=== PATIENT | female | born 1950 | race Caucasian/White ===

== ENCOUNTER 2017-11-01 22:05 | Emergency (ER) | payer OTHER ==
[~2017-11-01] VITALS: Ht 160 cm; Wt 126.6 kg
[~2017-11-01 22:05] MED LIST: ASPIR 8181 MG PO; BACTRIM DS TAB1 EACH PO; ECOTRIN81 MG PO; FISH OIL CONC1000 MG PO; HYDRODIURIL 2525 MG PO; KEFLEX500 M1 PO; LIPITOR20 MG PO; MICARDIS80 MG PO; NORVASC 5MG TAB5 MG PO; PERCOCET 5-3251 EACH PO; SYNTHROID0.112 MG PO; VALIUM5 M1 PO; VITAMIN C500 M3 PO
[2017-11-01 22:16] VITALS: BP 106/63
[2017-11-01 22:53] LABS: ABSOLUTE BASOPHIL COUNT 0 /CUMM (0.0-0.2); ABSOLUTE EOSINOPHIL COUNT 0.1 /CUMM (0.0-0.7); ABSOLUTE GRANULOCYTE CT 5.4 /CUMM (1.4-6.5); ABSOLUTE LYMPH COUNT 2.1 /CUMM (1.2-3.4); ABSOLUTE MONOCYTE COUNT 0.7 /CUMM (0.10-0.60); BASOPHIL % 0.4 % (0.0-2.0); EOSINOPHIL % 0.6 % (0-5); GRANULOCYTE % 64.9 % (42.2-75.2); HEMATOCRIT 35.4 % (37-47); MEAN CORPUSCULAR HGB 28.5 PG (27.0-31.0); MEAN CORPUSCULAR HGB CONC 33.3 G/DL (33.0-37.0); MEAN CORPUSCULAR VOLUME 85.7 FL (81.0-99.0); MEAN PLATELET VOLUME 7.8 FL (7.4-10.4); PLATELET COUNT 224 /CUMM (130-400); RBC DISTRIBUTION WIDTH 14.6 % (11.5-14.5); RED BLOOD CELL CT 4.13 /CUMM (4.20-5.40); WHITE BLOOD CELL COUNT 8.3 /CUMM (4.8-10.8)
--- NOTE | 2017-11-02 01:09 | ED ANIMAL BITE/WOUND CHECK ---
History of Present Illness General Chief Complaint: Lower Extremity Problems Stated Complaint: L LEG CELLULITIS Source: patient, family, old records Exam Limitations: no limitations Vital Signs & Intake/Output Vital Signs & Intake/Output Vital Signs Date Time Temp Pulse Resp B/P B/P Pulse O2 O2 Flow FiO2 Mean Ox Delivery Rate 11/01 2216 98.3 81 18 106/63 95 Room Air ED Intake and Output 11/02 0000 11/01 1200 Intake Total Output Total Balance Patient 279 lb Weight Weight Reported by Patient Measurement Method Allergies Coded Allergies: Penicillins (RASH 04/25/17) penicillin V (RASH 04/25/17) Reconcile Medications Amlodipine (Norvasc 5MG Tab) 5 MG TABLET 1 TAB PO DAILY HTN (Reported) Ascorbic Acid (Vitamin C) 500 MG TAB 1 TAB PO DAILY SUPPLEMENT (Reported) Aspirin (Ecotrin) 81 MG ECT 1 TAB PO DAILY HEART/BLOOD (Reported) Atorvastatin (Atorvastatin Calcium) 20 MG TABLET 1 TAB PO DAILY CHOLESTEROL ( Reported) Cephalexin (Keflex) 500 MG CAPSULE 1 CAP PO Q6H CELLULITIS Diazepam (Valium) 5 MG TAB 1 TAB PO TID PRN SPASM Fish Oil (Fish Oil Concentrate) 1,000 MG SGL 1 SGL PO DAILY SUPPLEMENT ( Reported) Hydrochlorothiazide (Hydrodiuril 25 MG Tab) 25 MG TABLET 1 TAB PO DAILY FLUID RETENTION (Reported) Levothyroxine Sodium (Synthroid) 0.112 MG TAB 0.112 MG PO DAILY AC hypothyroidism (Reported) Oxycodone HCl/Acetaminophen (Percocet 5-325 MG Tablet) 5 MG-325 MG TABLET 1 TAB PO TID PRN PAIN Sulfamethoxazole/Trimethoprim (Bactrim Ds Tablet) 800 MG-160 MG TABLET 1 TAB PO BID CELLULITIS Telmisartan (Micardis) 80 MG TAB 1 TAB PO DAILY HTN (Reported) Triage Note: PT FROM HOME C/O LLE SWELLING AND REDNESS FOR THE PAST 2 DAYS. PER PT SHE WAS SEEN HER IN ER ON THE FOR CELLULITIS. PT GIVEN ANTIBIOTICS AND HAS BEEN TAKING THEM FOR 2 DAYS. PTS VSS. PTS DAUGHTER STATES REDNESS HAS SUBSIDED "MAYBE A LITTLE, BUT ITS MORE SWOLLEN" PT STATES UNABLE TO WEIGHT BEAR ON LEFT FOOT. Triage Nurses Notes Reviewed? yes HPI: Patient was seen in the emergency department on and diagnosed with cellulitis. Patient was given an IV dose of antibiotics and then sent home on Keflex. Patient that had an ultrasound on Friday which showed no evidence of a DVT. The redness is much improved however the leg is still swollen so the patient comes in for reevaluation. There is no chest pain. No shortness of breath. There are no fevers or chills. Past History Travel History Traveled to [place] past 21 day No Medical History Any Pertinent Medical History? 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 No Review of Systems Review of Systems Constitutional: Reports: no symptoms. Respiratory: Reports: no symptoms. Cardiovascular: Reports: no symptoms. Musculoskeletal: Reports: see HPI. Skin: Reports: no symptoms. Immunologic/Allergic: Reports: no symptoms. Physical Exam Physical Exam General Appearance: well developed/nourished, alert, awake, mild distress Eyes: Bilateral: PERRL, EOMI. Neck: normal inspection, supple, full range of motion Respiratory: normal breath sounds, chest non-tender, no respiratory distress, lungs clear Cardiovascular: regular rate/rhythm, normal peripheral pulses Gastrointestinal: normal bowel sounds, soft, non-tender, no organomegaly Extremities: pedal edema Neurologic/Psych: no motor/sensory deficits, awake, alert, oriented x 3, normal gait Lymphatic: NO INGUINAL ADENOPATHY Progress Differential Diagnosis: cellulitis (RE-CHECK) Plan of Care: Orders Procedure Date/time Status Add-on Test (ER Only) 11/01 2344 Active LACTIC ACID 11/01 2245 Complete BLOOD CULTURE 11/02 2243 Active COMPREHENSIVE METABOLIC PANEL 11/01 2226 Complete CBC WITHOUT DIFFERENTIAL 11/01 2226 Complete Laboratory Tests 11/01/176: Anion Gap 10, Estimated GFR 50 L, BUN/Creatinine Ratio 17.3, Glucose 120 H, Lactic Acid 0.8, Calcium 8.5, Total Bilirubin 0.6, AST 15, ALT 23, Alkaline Phosphatase 80, Total Protein 6.3, Albumin 3.5, Globulin 2.8, Albumin/Globulin Ratio 1.3, CBC w Diff NO MAN DIFF REQ, RBC 4.13 L, MCV 85.7, MCH 28.5, MCHC 33.3, RDW 14.6 H, MPV 7.8, Gran % 64.9, Lymphocytes % 25.1, Monocytes % 9.0, Eosinophils % 0.6, Basophils % 0.4, Absolute Granulocytes 5.4, Absolute Lymphocytes 2.1, Absolute Monocytes 0.7 H, Absolute Eosinophils 0.1, Absolute Basophils 0 Microbiology 11/01 2245 BLOOD: Blood Culture - RECD 11/02 2243 BLOOD: Blood Culture - ORD Departure Departure Disposition: HOME OR SELF CARE Condition: Stable Clinical Impression Primary Impression: Encounter for wound re-check Referrals: Robert VALENTE,[place] (PCP/Family) Additional Instructions: KEEP LEG ELEVATED RETURN IF SYMPTOMS WORSEN OR FOR ANY CONCERNS Departure Forms: Customer Survey General Discharge Information
== END 2017-11-02 01:18 ==
LOC: ERH 22:05
PROVIDERS: Emergency Medicine
DX: L03.116 Cellulitis of left lower limb (principal)
CPT/HCPCS: 87040; 99281